=== PATIENT | male | born 1980 | race Caucasian/White ===

== ENCOUNTER 2018-03-01 19:37 | Emergency (ER) | payer MEDICAID ==
[~2018-03-01] VITALS: Ht 172.7 cm; Wt 117.0 kg
[2018-03-01 20:17] VITALS: BP 139/87
[2018-03-01] MEDS: NACL 0.9% 1,000 ML IV ONE ×2 (20:58→22:01)
[2018-03-01 21:12] LABS: BASOPHILS # (AUTO) 0.1 K/uL (0.00-0.22); BASOPHILS % (AUTO) 0.5 % (0.0-2.0); EOSINOPHILS % (AUTO) 0.2 % (0.0-4.0); HEMOGLOBIN 16.9 g/dL (12.0-18.0); LYMPHOCYTES % (AUTO) 9.4 % (20.5-51.1); MEAN CORPUSCULAR HEMOGLOBIN 28 pg (27-31); MEAN CORPUSCULAR HGB CONC 34 g/dL (33-37); MEAN CORPUSCULAR VOLUME 82.8 fL (80-94); MONOCYTES # (AUTO) 0.8 K/uL (0.8-1.0); MONOCYTES % (AUTO) 7.9 % (1.7-9.3); NEUTROPHILS # (AUTO) 8.4 K/uL (1.8-7.7); PLATELET COUNT (AUTO) 211 K/uL (140-450); RED BLOOD CELL COUNT(AUTO) 6.04 MIL/uL (4.20-6.10); WHITE BLOOD COUNT (AUTO) 10.2 K/uL (4.8-10.8)
[2018-03-01 21:22] LABS: ANION GAP 15.8 (8-16); CREATININE 1.5 mg/dL (0.7-1.3); POTASSIUM 3.8 mmol/L (3.5-5.1)
[2018-03-01 21:28] LABS: ALBUMIN 4.1 g/dL (3.4-5.0); TOTAL BILIRUBIN 0.5 mg/dL (0.0-1.0)
[2018-03-01 22:40] LABS: BARBITURATE, URINE NEG. ng/ml (NEG <=200); BENZODIAZEPINE, URINE NEG. ng/mL (NEG <=200); CANNABINOID, URINE NEG. ng/mL (NEG <=50); COCAINE, URINE NEG. ng/mL (NEG <=300); OPIATE, URINE NEG. ng/mL (NEG <=2000); PHENCYCLIDINE SCREEN,URINE NEG. ng/mL (NEG <=25)
[2018-03-01 23:15] VITALS: BP 148/89
== END 2018-03-01 23:10 | disposition home or self-care (01) ==
LOC: MED 19:37
DX: E86.0 Dehydration (principal); R55 Syncope and collapse; I10 Essential (primary) hypertension
CPT/HCPCS: 36415; 70450; 71045; 80053; 80305; 84484; 85025; 93005; 96360; 99284; J7030; Q0092

== ENCOUNTER 2018-07-05 18:37 | Emergency (ER) | payer MEDICAID ==
[~2018-07-05] VITALS: Ht 172.7 cm; Wt 112.0 kg
--- NOTE | 2018-07-05 18:40 | NUR ---
CORRIEG COMPLETED AND HANDED TO DR. LEGGETT. PT OK TO WAIT IN LOBBY PER DR. LEGGETT. PT TO LOBBY WITH STEADY.
[2018-07-05 18:49] VITALS: BP 175/97
[2018-07-05] MEDS ORDERED: NEBI10TA PO (18:53)
--- NOTE | 2018-07-05 19:09 | NUR ---
PT TO BED 1 WITH STEADY GAIT. DRESSED IN GOWN. PLACED ON MONITOR.
--- NOTE | 2018-07-05 19:09 | NUR ---
BIB SELF. AAO X4 C/O SUDDEN ONSET LOWER CHEST PRESSURE PAIN X TODAY AT 1815 RADIATED ACROSS CHEST LASTING APPROX 15 MINS WITH DIZZINESS AND NAUSEA. NO SOB/VOMITING. PRESSURE PAIN RESOLVED AT TIME OF TRIAGE. MILD DIZZINESS NOW. PERRLA, BRISK 3 MM. FULL CLEAR SPEECH. EQUAL TOM STRENGTH TO UPPER AND LOWER EXTREMITIES. PT PLACED ON FULL SOCIAL SERVICES ASSISTANT. HOB UP. BED SIDE RAILS UP X1. ON LOW BED POSITION, LOCKED. ER MADE AWARE OF PT STATUS.
--- NOTE | 2018-07-05 19:15 | NUR ---
Pt report given to MAGDIEL Tracey. Transfer of care at this time.
--- NOTE | 2018-07-05 19:19 | NUR ---
Dr. Mauro evaluating patient at bedside.
[2018-07-05] MEDS ORDERED: ASPIRIN 81 MG TAB.CHEW PO ONE (19:30)
[2018-07-05 19:51] LABS: BASOPHILS # (AUTO) 0.1 K/uL (0.00-0.22); EOSINOPHILS # (AUTO) 0.1 K/uL (0-0.4); EOSINOPHILS % (AUTO) 1.8 % (0.0-4.0); HEMATOCRIT 45.9 % (36-52); HEMOGLOBIN 15.4 g/dL (12.0-18.0); LYMPHOCYTES % (AUTO) 15.3 % (20.5-51.1); MEAN CORPUSCULAR HEMOGLOBIN 28 pg (27-31); MEAN CORPUSCULAR HGB CONC 34 g/dL (33-37); MONOCYTES # (AUTO) 0.6 K/uL (0.8-1.0); MONOCYTES % (AUTO) 8.9 % (1.7-9.3); NEUTROPHILS # (AUTO) 4.9 K/uL (1.8-7.7); PLATELET COUNT (AUTO) 217 K/uL (140-450); RED BLOOD CELL COUNT(AUTO) 5.46 MIL/uL (4.20-6.10); WHITE BLOOD COUNT (AUTO) 6.8 K/uL (4.8-10.8)
[2018-07-05 20:02] LABS: ANION GAP 8.7 (8-16); CREATININE 1.3 mg/dL (0.7-1.3); POTASSIUM 3.7 mmol/L (3.5-5.1)
[2018-07-05 20:09] LABS: ALBUMIN 3.7 g/dL (3.4-5.0); TOTAL BILIRUBIN 0.3 mg/dL (0.0-1.0)
--- NOTE | 2018-07-05 20:09 | NUR ---
PT IN BED RESTING WITH EYES OPEN. VSS. NO CP, NO SOB/DYSPNEA. 0/10 PAIN. NO NEEDS AT THIS TIME. CONTINUE TO MONITOR.
[2018-07-05 21:40] VITALS: BP 148/92
--- NOTE | 2018-07-05 21:40 | NUR ---
Patient discharged with v/s stable. Written and verbal after care instructions given and explained. Patient verbalized understanding. Ambulatory with steady gait. All questions addressed prior to discharge. Advised to follow up with PMD.
== END 2018-07-05 21:40 | disposition home or self-care (01) ==
LOC: MED 18:37
DX: R07.89 Other chest pain (principal); R06.02 Shortness of breath; I10 Essential (primary) hypertension; Z79.899 Other long term (current) drug therapy
CPT/HCPCS: 36415; 71045; 80053; 84484; 85025; 93005; 99284; Q0092

== ENCOUNTER 2019-04-01 22:41 | Emergency (ER) | payer MEDICAID ==
[~2019-04-01] VITALS: Ht 175.3 cm; Wt 117.9 kg
[~2019-04-01 22:41] MED LIST: NEBI10TA PO
[2019-04-01 22:45] VITALS: BP 149/82
--- NOTE | 2019-04-01 22:45 | NUR ---
TO BED # 09 AMBULATORY
--- NOTE | 2019-04-01 23:01 | NUR ---
38 Y/O MALE PRESENTS TO ED, C/O CHEST PAIN 07/01. PT STATES PAIN HAS BEEN ONGOING X6 DAYS. PAIN DOES NOT RADIATE. DENIES ANY SOB/DIFFICULTY BREATHING. LUNG SOUNDS BILAT CLEAR. PT TOOK ASPIRIN AROUND 1800 TODAY. FELT NAUSEA THIS MORNING BUT CURRENTLY NO N/V DURING ASSESSMENT. DENIES HEADACHE OR DIZZINESS. HAS HX OF HTN, COMPLIANT WITH BP MEDS. PT PLACED ON MONITOR. ERMD AWARE. WILL CONTINUE TO MONITOR.
--- NOTE | 2019-04-01 23:59 | NUR ---
XRAY AT BEDSIDE
--- NOTE | 2019-04-01 23:59 | NUR ---
BLOOD DRAWN AND SENT TO LAB AT THIS TIME
[2019-04-02 00:10] LABS: BASOPHILS # (AUTO) 0.1 K/uL (0.00-0.22); BASOPHILS % (AUTO) 0.9 % (0.0-2.0); EOSINOPHILS # (AUTO) 0.4 K/uL (0-0.4); HEMATOCRIT 47.2 % (36-52); HEMOGLOBIN 15.5 g/dL (12.0-18.0); LYMPHOCYTES # (AUTO) 1.7 K/uL (2.0-11.5); LYMPHOCYTES % (AUTO) 23.6 % (20.5-51.1); MEAN CORPUSCULAR HEMOGLOBIN 28 pg (27-31); MEAN CORPUSCULAR HGB CONC 33 g/dL (33-37); MEAN CORPUSCULAR VOLUME 86.4 fL (80-94); MONOCYTES # (AUTO) 0.7 K/uL (0.8-1.0); MONOCYTES % (AUTO) 10.3 % (1.7-9.3); NEUTROPHILS # (AUTO) 4.2 K/uL (1.8-7.7); NEUTROPHILS % (AUTO) 60.2 % (42.2-75.2); PLATELET COUNT (AUTO) 200 K/uL (140-450); RED BLOOD CELL COUNT(AUTO) 5.46 MIL/uL (4.20-6.10); RED CELL DISTRIBUTION WIDTH 13.8 % (11.6-13.7)
[2019-04-02 00:44] LABS: ALBUMIN 3.4 g/dL (3.4-5.0); ANION GAP 11.8 (8-16); CREATININE 1.5 mg/dL (0.6-1.3); POTASSIUM 3.8 mmol/L (3.5-5.1); TOTAL BILIRUBIN 0.3 mg/dL (0.0-1.0)
[2019-04-02 01:11] LABS: CREATINE KINASE MB 0.4 ng/mL (0-3.6)
[2019-04-02] MEDS ORDERED: LORazepam 1 MG TAB PO ONE (02:05)
--- NOTE | 2019-04-02 02:11 | NUR ---
PT STATES FEELING BETTER AND "RELAXED". WILL CONTINUE TO MONITOR.
--- NOTE | 2019-04-02 04:21 | NUR ---
PT LAYING ON BED. PT DENIES ANY PAIN. WILL CONTINUE TO MONITOR.
[2019-04-02 04:55] VITALS: BP 128/76
--- NOTE | 2019-04-02 04:55 | NUR ---
PT DISCHARGED WITH PAPERWORK. EDUCATED PT REGARDING D/C DIAGNOSIS AND INSTRUCTIONS. PT VERBALIZED UNDERSTANDING OF TEACHING. TOLD PT TO FOLLOW UP WITH PCP AND WHEN TO RETURN TO ED. PT STABLE CONDITION. ALL QUESTIONS ANSWERED.
== END 2019-04-02 04:55 | disposition home or self-care (01) ==
LOC: MED 22:41
DX: R07.2 Precordial pain (principal); R06.00 Dyspnea, unspecified; R06.02 Shortness of breath; I10 Essential (primary) hypertension; E03.9 Hypothyroidism, unspecified; Z79.899 Other long term (current) drug therapy
CPT/HCPCS: 36415; 71045; 80053; 82550; 82553; 83690; 84484; 85025; 85379; 93005; 99284; Q0092